=== PATIENT | male | born 1980 | race Caucasian/White ===

== ENCOUNTER 2020-10-27 11:50 | Emergency (ER) | payer BC, MEDICAID, OTHER ==
--- NOTE | 2020-10-27 11:51 | EDM.PDOC ---
ED HPI GENERAL MEDICAL PROBLEM - General Chief Complaint: Lower Extremity Injury/Pain Stated Complaint: lft ankle possibly broken Time Seen by Provider: 10/27/20 11:50 Source of Information: Reports: Patient History Limitations: Reports: No Limitations - History of Present Illness INITIAL COMMENTS - FREE TEXT/NARRATIVE: 39-year-old male presents with pain to left ankle after an inversion injury while walking downstairs. Patient was walking on the stairs when he accidentally inverted his left ankle putting his body weight into the ankle. He denies hitting his head or any other injuries. He was able to walk on it afterwards but it hurts to bear weight. He notes a large amount of swelling over the left ankle. He has not had any pain medicine prior to arrival. left ankle Pain Score (Numeric/FACES): 6 - Related Data Allergies Allergy/AdvReac Type Severity Reaction Status Date / Time No Known Allergies Allergy Verified 10/27/20 12:09 Home Meds: Home Meds lisinopriL [Lisinopril] 20 mg PO DAILY 10/27/20 [History] Review of Systems - Review of Systems Review Of Systems: Comprehensive ROS is negative, except as noted in HPI. ED EXAM, GENERAL - Physical Exam Exam: See Below Exam Limited By: No Limitations General Appearance: Alert, WD/WN, No Apparent Distress Head: Atraumatic, Normocephalic Neck: Normal Inspection Respiratory/Chest: No Respiratory Distress, No Accessory Muscle Use Cardiovascular: Normal Peripheral Pulses, Regular Rate, Rhythm Extremities: Other (No left tibial tenderness palpation, no left medial malleolus tenderness palpation, normal dorsalis pedis pulse, swelling of the left ankle.) Neurological: Alert, Normal Cognition Psychiatric: Normal Affect, Normal Mood Skin Exam: Warm, Dry, Intact, Normal Color Course - Vital Signs Last Recorded V/S: Last Vital Signs Temp 97.6 F 10/27/20 12:07 Pulse 87 10/27/20 12:07 Resp BP 149/99 H 10/27/20 12:07 Pulse Ox 98 10/27/20 12:07 - Orders/Labs/Meds Orders: Active Orders 24 hr Category Date Time Status Ankle Min 3V Lt [CR] Stat Exams 10/27/20 11:51 Taken Meds: Medications Discontinued Medications Generic Name Dose Route Start Last Admin Trade Name Freq PRN Reason Stop Dose Admin Acetaminophen 1,000 mg 10/27/20 12:16 05/30/21 12:42 Acetaminophen 500 Mg Tab PO 10/27/20 12:17 1,000 mg ONETIME ONE Administration Ibuprofen 600 mg 10/27/20 12:16 10/27/20 12:42 Ibuprofen 600 Mg Tab PO 10/27/20 12:17 600 mg ONETIME ONE Administration - Re-Assessments/Exams Free Text/Narrative Re-Assessment/Exam: 10/27/20 12:17 We will get x-ray imaging of the left ankle to rule out fracture. Will give analgesia while working up. 10/27/20 13:28 X-ray imaging is unremarkable. We will Chad bandage the affected extremity and discharge patient home with PMD follow-up. Departure - Departure Time of Disposition: 13:28 Disposition: Home, Self-Care 01 Condition: Good Clinical Impression: Ankle sprain Qualifiers: Encounter type: initial encounter Involved ligament of ankle: unspecified ligament Laterality: left Qualified Code(s): S93.402A - Sprain of unspecified ligament of left ankle, initial encounter - Discharge Information Instructions: Ankle Sprain Referrals: PCP,Not In Area [Primary Care Provider] - Forms: ED Department Discharge Additional Instructions: The following information is given to patients seen in the emergency department who are being discharged to home. This information is to outline your options for follow-up care. We provide all patients seen in our emergency department with a follow-up referral. The need for follow-up, as well as the timing and circumstances, are variable depending upon the specifics of your emergency department visit. If you don't have a primary care physician on staff, we will provide you with a referral. We always advise you to contact your personal physician following an emergency department visit to inform them of the circumstance of the visit and for follow-up with them and/or the need for any referrals to a consulting specialist. The emergency department will also refer you to a specialist when appropriate. This referral assures that you have the opportunity for follow-up care with a specialist. All of these measure are taken in an effort to provide you with optimal care, which includes your follow-up. Under all circumstances we always encourage you to contact your private physician who remains a resource for coordinating your care. When calling for follow-up care, please make the office aware that this follow-up is from your recent emergency room visit. If for any reason you are refused follow-up, please contact the [facility] Emergency Department at and asked to speak to the emergency department charge nurse. Please follow up with your primary care physician. If you do not have a primary care physician, see below: [facility] [address] [place] [address] [id number] [facility] [address] [place] [address] [facility] [address] [place] [id number] Sepsis Event Note (ED) - Focused Exam Vital Signs: Vital Signs Temp Pulse BP Pulse Ox 10/27/20 12:07 97.6 F 87 149/99 H 98 - My Orders Last 24 Hours: My Active Orders 10/27/20 11:51 Ankle Min 3V Lt [CR] Stat - Assessment/Plan Last 24 Hours: My Active Orders 10/27/20 11:51 Ankle Min 3V Lt [CR] Stat
[2020-10-27] MEDS ORDERED: Acetaminophen 500 MG Tab PO ONE (12:16)
[2020-10-27] MEDS ORDERED: Ibuprofen 600 MG Tab PO ONE (12:16)
--- NOTE | 2020-10-27 14:06 | CR ---
INDICATION: Left ankle injury and pain. TECHNIQUE: Ankle radiograph 3 views COMPARISON: None FINDINGS: Bones: Alignment is normal. No acute fractures or aggressive osseous lesions seen. Plantar calcaneal spurring. Joint spaces: The visualized tibiotalar, subtalar, and midfoot joints are unremarkable in appearance. No joint effusion is seen. Soft tissues: Moderate degree of medial and lateral soft tissue swelling. No radiopaque soft tissue foreign body. Retrocalcaneal fat pad normal. Distal Achilles tendon unremarkable. IMPRESSION: 1. Moderate left ankle soft tissue swelling. No acute fracture. Dictated by Chance Mckinney MD @ 10/27/2020 1:00:[address] Chance Mckinney @ Oct 27 2020 1:00PM
== END 2020-10-27 13:42 | disposition home or self-care (01) ==
LOC: MW.ED 11:50
DX: S93.402A Sprain of unspecified ligament of left ankle, initial encounter (principal); Z79.899 Other long term (current) drug therapy; X50.1XXA Overexertion from prolonged static or awkward postures, initial encounter
CPT/HCPCS: 73610; 99283; A9270; 99282

== ENCOUNTER 2022-08-18 19:02 | Emergency (ER) | payer BC, OTHER ==
[2022-08-18] MEDS ORDERED: diphenhydrAMINE 50 MG/ML SDV IVPUSH ONE (20:25)
[2022-08-18] MEDS ORDERED: Metoclopramide 10 MG/2 ML SDV IVPUSH ONE (20:25)
[2022-08-18] MEDS ORDERED: Sodium Chloride 0.9% 1,000 ML IV ONE (20:44)
== END 2022-08-18 22:49 | disposition home or self-care (01) ==
LOC: MW.ED 19:02
DX: R51.9 Headache, unspecified (principal); I10 Essential (primary) hypertension; Z79.899 Other long term (current) drug therapy
CPT/HCPCS: 70450; 96361; 96374; 96375; 99284; J1200; J2765; J7030; 99283